=== PATIENT | male | born 1995 | race Caucasian/White ===

== ENCOUNTER 2018-11-18 16:10 | Inpatient (IN) ==
--- NOTE | 2018-11-18 16:33 | Emergency Department Note ---
Disposition Clinical Impression: Suicidal ideation Disposition: Admitted As Inpatient Condition: Good Time of Disposition: 00:02 Psych HPI - General Chief Complaint: ED Psychiatric Symptoms Stated Complaint: SI,Depression Time Seen by Provider: 11/18/18 16:19 Source: patient, family Nursing Notes Reviewed: Yes Vital Signs Reviewed: Yes - History of Present Illness HPI Narrative: 23-year-old male presents from home for violation of suicidal ideation. Patient has not seen a 7-month-old son in quite sometime. His fiancee is cheating on him. He is previously ; his spouse cheated on him at that time. He feels he is just not getting his life back together and with the news about his now fiancee, he feels his life is falling apart again. He told his parents that, "he will be around the next week." They are concerned about suicide. Patient admits to suicidal ideation. He has no specific plan. He has, on one remote occurrence, had suicidal ideation with no plan. No prior suicidal attempts. PMH: None Daily medications: None ROS: positive: Suicidal ideation with no specific plan Negative: Homicidal ideation, fever, chills, nausea, vomiting, palpitations, dyspnea, diaphoresis, abdominal pain - Related Data Previous Rx's Medication Instructions Recorded Tizanidine HCl 4 mg PO TID PRN #15 tablet 11/27/17 methylPREDNISolone [Medrol] 4 mg PO DAILY #1 pack 11/27/17 Guaifenesin/Dm/Pseudoephedrine 1 each PO Q4HR PRN #20 tablet 09/07/18 [Capmist Dm Tablet] Allergies Allergy/AdvReac Type Severity Reaction Status Date / Time No Known Allergies Allergy Verified 11/27/17 20:44 All systems ED: reviewed and negative except as stated. Review of Systems: As Per HPI Past Medical History - Past Medical History Medical history: Reports: no medical history Psychiatric history: Reports: no psych history - Social History Smoking Status: Current every day smoker Smokeless Tobacco Status: No Alcohol use: Reports: occasionally Drug use: Reports: none Physical Exam Vital Signs Reviewed General: Patient is alert, oriented, and tearful. Head: atraumatic, normocephalic Eye: normal appearance, PERRL, EOMI, no scleral icterus, no conjunctival injection ENT: mucous membranes moist, normal external ear exam Neck: normal inspection, trachea midline, full ROM Chest: normal inspection, symmetric chest rise Respiratory: Good respiratory effort. Bilateral breath sounds are clear without wheezing, crackles, or rhonchi. Cardiovascular: Regular rate and rhythm. No clicks, rubs, gallops, or murmors. Normal heart sounds. Abdomen: Bowel sounds present normoactive. Abdomen is soft, nondistended, and nontender. No guarding or rebound. No organomegaly noted. Musculoskeletal: Spontaneously moving all extremities. Skin: warm, dry, intact. Neuro: GCS 15. No focal neurologic deficits observed. Psych: Patient's affect is appropriate for situation. - General Limitations: no limitations General appearance: alert, in no apparent distress Course Course Narrative: EKG dated 11/18/18 at 17:09 interpreted as sinus rhythm with a rate of 78. NE 154, respiratory 4, QTC 420. Normal axis. Nonspecific ST-T changes. Early repolarization. No evidence of Wellens, Brugada, or Caruso Parkinson White. Compared to previous EKG dated 12/10/2017 showing no acute ischemic changes comparison. Patient is medically cleared at this time. Patient's been evaluated by mental health team. He is accepted to this facility for their continued evaluation. [place] slip has been completed. Vital Signs Temperature 98.7 F 11/18/18 16:16 Pulse Rate 90 11/18/18 16:16 Respiratory Rate 16 11/18/18 16:16 Blood Pressure 150/82 11/18/18 16:16 O2 Sat by Pulse Oximetry 96 11/18/18 16:16 Temperature 98.3 F 11/18/18 17:29 Pulse Rate 79 11/18/18 17:29 Respiratory Rate 14 11/18/18 17:29 Blood Pressure 121/68 11/18/18 17:29 O2 Sat by Pulse Oximetry 95 11/18/18 17:29 Oxygen Delivery Oxygen Delivery Room Air Psych - Lab Data Result diagrams: 11/18/18 18:11 11/18/18 18:11 Lab Results 11/18/18 11/18/18 11/18/18 Range/Units 16:30 16:30 18:11 WBC 7.0 (4.3-11.1) K/mcL RBC 4.70 (4.19-5.50) M/mcL Hgb 14.3 (12.9-16.9) g/dL Hct 42.4 (37.5-50.1) % MCV 90.2 (83.0-100.0) fL MCH 30.4 (28.0-33.3) pg MCHC 33.7 (31.6-35.5) g/dL RDW 12.4 (11.5-14.5) % Plt Count 250 (140-400) K/mcL MPV 10.3 (9.4-12.4) fL Immature Gran % 0.1 (0-4) % Seg Neutrophils % 59.5 % Lymphocytes % 24.3 % Monocytes % 10.1 % Eosinophils % 5.4 % Basophils % 0.6 % Neutrophils # 4.2 (1.6-8.9) K/mcL Lymphocytes # 1.7 (0.6-4.6) K/mcL Monocytes # 0.7 (0.0-1.3) K/mcL Eosinophils # 0.4 (0.0-0.6) K/mcL Basophils # 0.0 (0.0-0.2) K/mcL Sodium (136-145) mEq/L Potassium (3.5-5.1) mEq/L Chloride (98-107) mEq/L Carbon Dioxide (23-29) mEq/L BUN (6-20) mg/dL Creatinine (0.70-1.30) mg/dL Est GFR ( Amer) (> 60) Est GFR (Non-Af Amer) (> 60) BUN/Creatinine Ratio (6-26) Glucose (70-105) mg/dL Calculated Osmolality (280-300) Calcium (8.6-10.3) mg/dL Urine Color Dark Yellow (Yellow) Urine Clarity Clear (Clear) Urine pH 6.0 (5.0-8.0) pH Units Ur Specific [place] 1.027 H (1.010-1.025) Urine Protein Negative (Neg-Trace) mg/dL Urine Glucose (UA) Normal (Normal) mg/dL Urine Ketones 40 H (Negative) mg/dL Urine Blood Negative (Negative) Urine Nitrite Negative (Negative) Urine Bilirubin Small H (Negative) Urine Urobilinogen 2.0 H (Normal) mg/dL Ur Leukocyte Esterase Negative (Negative) Salicylates (15.0-30.0) mg/dL Urine Opiates Screen Negative (Azjstn=441) ng/mL Acetaminophen (10-20) mcg/mL Ur Barbiturates Screen Negative (Ulmahs=317) ng/mL Ur Phencyclidine Scrn Negative (Cutoff=25) ng/mL Ur Amphetamines Screen Negative (Dfszji=3909) ng/mL U Benzodiazepines Scrn Negative (Ksutkw=625) ng/mL Urine Cocaine Screen Negative (Cutoff= 300) ng/mL U Marijuana (THC) Screen Negative (Cutoff = 50) ng/mL Ur Drug Screen Interp See Below Ethyl Alcohol (Less than 10) mg/dL 11/18/18 Range/Units 18:11 WBC (4.3-11.1) K/mcL RBC (4.19-5.50) M/mcL Hgb (12.9-16.9) g/dL Hct (37.5-50.1) % MCV (83.0-100.0) fL MCH (28.0-33.3) pg MCHC (31.6-35.5) g/dL RDW (11.5-14.5) % Plt Count (140-400) K/mcL MPV (9.4-12.4) fL Immature Gran % (0-4) % Seg Neutrophils % % Lymphocytes % % Monocytes % % Eosinophils % % Basophils % % Neutrophils # (1.6-8.9) K/mcL Lymphocytes # (0.6-4.6) K/mcL Monocytes # (0.0-1.3) K/mcL Eosinophils # (0.0-0.6) K/mcL Basophils # (0.0-0.2) K/mcL Sodium 139 (136-145) mEq/L Potassium 3.6 (3.5-5.1) mEq/L Chloride 105 (98-107) mEq/L Carbon Dioxide 28 (23-29) mEq/L BUN 8 (6-20) mg/dL Creatinine 0.89 (0.70-1.30) mg/dL Est GFR ( Amer) > 60 (> 60) Est GFR (Non-Af Amer) > 60 (> 60) BUN/Creatinine Ratio 9 (6-26) Glucose 107 H (70-105) mg/dL Calculated Osmolality 287 (280-300) Calcium 9.3 (8.6-10.3) mg/dL Urine Color (Yellow) Urine Clarity (Clear) Urine pH (5.0-8.0) pH Units Ur Specific [place] (1.010-1.025) Urine Protein (Neg-Trace) mg/dL Urine Glucose (UA) (Normal) mg/dL Urine Ketones (Negative) mg/dL Urine Blood (Negative) Urine Nitrite (Negative) Urine Bilirubin (Negative) Urine Urobilinogen (Normal) mg/dL Ur Leukocyte Esterase (Negative) Salicylates < 2.5 L (15.0-30.0) mg/dL Urine Opiates Screen (Zedmvf=986) ng/mL Acetaminophen < 10 L (10-20) mcg/mL Ur Barbiturates Screen (Jujolu=669) ng/mL Ur Phencyclidine Scrn (Cutoff=25) ng/mL Ur Amphetamines Screen (Uglymr=2225) ng/mL U Benzodiazepines Scrn (Fowqhe=254) ng/mL Urine Cocaine Screen (Cutoff= 300) ng/mL U Marijuana (THC) Screen (Cutoff = 50) ng/mL Ur Drug Screen Interp Ethyl Alcohol < 10 (Less than 10) mg/dL Psychiatric Medical Clearance - Medical Clearance Checklist Medical History: No Social History Section defined Current Vitals: Last Vital Signs Temp 98.3 F 11/18/18 17:29 Pulse 79 11/18/18 17:29 Resp 14 11/18/18 17:29 BP 121/68 11/18/18 17:29 Pulse Ox 95 11/18/18 17:29 Psychiatric Lab Panel: Drug Levels and Toxicity 11/18/18 11/18/18 16:30 18:11 Urine Opiates Screen Negative Acetaminophen < 10 L Ur Barbiturates Screen Negative Ur Phencyclidine Scrn Negative Ur Amphetamines Screen Negative U Benzodiazepines Scrn Negative Urine Cocaine Screen Negative U Marijuana (THC) Screen Negative Ethyl Alcohol < 10 Abnormal Labs: Abnormal lab results Glucose 107 mg/dL (70-105) H 11/18/18 18:11 Ur Specific [place] 1.027 (1.010-1.025) H 11/18/18 16:30 40 mg/dL (Negative) H 11/18/18 16:30 Small (Negative) H 11/18/18 16:30 2.0 mg/dL (Normal) H 11/18/18 16:30 Salicylates < 2.5 mg/dL (15.0-30.0) L 11/18/18 18:11 Acetaminophen < 10 mcg/mL (10-20) L 11/18/18 18:11 Statement of Medical Clearance: I have evaluated the patient, reviewed diagnostic information, and certify that the patient's medical condition is sufficiently stable that transfer to the psychiatric unit does not pose a significant risk of deterioration. Attestation Statement - Attestation Attestation: Resident Attestation: I examined this patient and my medical decision making was reviewed with the Resident Physician. I agree with the documented findings, disposition and treatment plan as described except to the extent set forth below. We independently had [id number] contact with the patient. Patient presenting for evaluation of depression as well as suicidal ideation. Patient has significant life stressors. No active plan. Patient without fevers, chills, chest pain or other symptoms. Patient will undergo further evaluation by our mental health team. General appearance: NAD, conversant Eyes: anicteric sclerae, moist conjunctivae HENT: Atraumatic; oropharynx clear with moist mucous membranes Neck: Normal appearance; Trachea midline Chest: Symmetrical chest rise; No respiratory distress Extremities: No peripheral edema or extremity tenderness Skin: Normal temperature, turgor and texture; no rash, ulcers or subcutaneous nodules Psych: Appropriate mood and affect Neuro: Awake and alert
[2018-11-18 17:04] LABS: Bilirubin,Urine Small (Negative); Blood,Urine Negative (Negative); Clarity,Urine Clear (Clear); Color,Urine Dark Yellow (Yellow); Glucose,Urine (UA) Normal (Normal); Ketones,Urine 40 mg/dL (Negative); Leukocyte Esterase,Urine Negative (Negative); Nitrite,Urine Negative (Negative); Protein,Urine Negative (Neg-Trace); Specific Gravity,Urine 1.027 (1.010-1.025)
[2018-11-18] MEDS ORDERED: Nicotine 21 MG PATCH.TD24 TD SCH (17:15)
[2018-11-18 17:17] LABS: Amphetamine Screen,Urine Negative ng/mL (Cutoff=1000); Barbiturate Screen,Urine Negative ng/mL (Cutoff=200); Benzodiazepines Screen,Urine Negative ng/mL (Cutoff=200); Cannabinoid Screen,Urine Negative ng/mL (Cutoff = 50); Cocaine Screen,Urine Negative ng/mL (Cutoff= 300); Opiate Screen,Urine Negative ng/mL (Cutoff=300); Phencyclidine Screen,Urine Negative ng/mL (Cutoff=25)
[2018-11-18 18:23] LABS: Basophils % 0.6 %; Eosinophils # 0.4 K/mcL (0.0-0.6); Eosinophils % 5.4 %; Hematocrit 42.4 % (37.5-50.1); Hemoglobin 14.3 g/dL (12.9-16.9); Immature Granulocytes % 0.1 % (0-4); Lymphocytes # 1.7 K/mcL (0.6-4.6); Lymphocytes % 24.3 %; Mean Corpuscular HGB Conc 33.7 g/dL (31.6-35.5); Mean Corpuscular Hemoglobin 30.4 pg (28.0-33.3); Mean Corpuscular Volume 90.2 fL (83.0-100.0); Mean Platelet Volume 10.3 fL (9.4-12.4); Monocytes # 0.7 K/mcL (0.0-1.3); Monocytes % 10.1 %; Neutrophils # 4.2 K/mcL (1.6-8.9); Platelet Count 250 K/mcL (140-400); Red Cell Distribution Width 12.4 % (11.5-14.5); Segmented Neutrophils % 59.5 %
[2018-11-18 18:43] LABS: Acetaminophen < 10 mcg/mL (10-20); BUN/Creatinine Ratio 9 (6-26); Blood Urea Nitrogen 8 mg/dL (6-20); Calcium 9.3 mg/dL (8.6-10.3); Carbon Dioxide 28 mEq/L (23-29); Chloride 105 mEq/L (98-107); Ethanol < 10 mg/dL (Less than 10); Glucose 107 mg/dL (70-105); Osmolality,Calculated 287 (280-300); Potassium 3.6 mEq/L (3.5-5.1); Salicylate < 2.5 mg/dL (15.0-30.0); Sodium 139 mEq/L (136-145); eGFR For Non-African Americans > 60 (> 60)
[2018-11-19] MEDS ORDERED: *HR* LORazepam 1 MG TABLET PO PRN (00:04)
[2018-11-19] MEDS ORDERED: Mag Hydrox/Al Hydrox/Simeth 30 ML UDC PO PRN (00:04)
[2018-11-19] MEDS ORDERED: traZODone 50 MG TABLET PO PRN (00:04)
[2018-11-19] MEDS ORDERED: *HR* LORazepam 2 MG/ML VIAL IM PRN (00:04)
[2018-11-19] MEDS ORDERED: hydrOXYzine pamoate 25 MG CAPSULE PO PRN (00:04)
[2018-11-19] MEDS ORDERED: MOM Conc 10 ML UD.LIQ PO PRN (00:04)
[2018-11-19] MEDS ORDERED: Ibuprofen 400 MG TABLET PO PRN (00:04)
[2018-11-19] MEDS ORDERED: Haloperidol Lactate 5 MG/ML VIAL IM PRN (00:04)
[2018-11-19] MEDS ORDERED: Nicotine 21 MG PATCH.TD24 TD SCH (09:00)
[2018-11-19] MEDS: Nicotine 2 MG GUM BC PRN ×2 (09:44→13:54)
[2018-11-19 12:51] VITALS: BP 118/70
--- NOTE | 2018-11-19 14:08 | Discharge Summary ---
Date of Encounter: 11/19/18 Time of Encounter: 13:00 History of Present Illness Chief complaint: "I'm feeling fine. My dad just upsets me some times. He overreacts." Admitted From: Emergency Dept History of Present Illness: Mr. Gongora is a 23 year old male who was brought to the ED last evening by his father who was concerned that his son was suicidal. The father reported that the patient's friend in [place] had contacted him saying that he was coming back to visit next week, and the son said he might not be there. According to the father, the man coming for the visit asked the patient where he would be, and the patient replied, 'probably in hell.' Patient denies being suicidal. He is going through a stressful period currently as he found out his fiancee was having an affair and she left him and took their 10 month old son. He reports felling anxious about this and worrying as she is not letting him see his son and he has little to no communication with her. He is depressed and anxious, but not hopeless and helpless. He has lost weight in past month or two, but he states that was because he was over weight and people were telling him he was getting fat. He states what his father did not report, was that after he said 'probably in hell', that he followed it up with "That's what I'm living in now with everything that is going on right now" regarding his now ex-fiancee and his son. He does admit to isolating recently and working on his trucks and other projects to keep his mind active and not to perseverate on the break up of the relationship. He does acknowledge that he got depressed before when his marriage fell apart, over a similar incident. And with his father's insistence, saw his family doc to get placed on medication for depression and anxiety. He took it for about 2 weeks. He did not like the side effects and stopped taking it. I"I didn't need it. I was fine." He never went back for counseling, never tried to harm himself or anyone else. With time, things improved and life got back to normal. He tells me that he gets frustrated with his dad because his "dad puts his own spin on things and does not understand or know" what the patient is going through and what he is doing to cope. "I would never hurt myself. I have two sons to raise and they need me. I need to get home today because today is my oldest son's 5th birthday and I need to be a part of that." He also states that he was thinking about going to [place] for a long weekend at the time that his snow was coming home from [place]. That was also why he said that he may not be there. "Not cause I am going to kill myself." He tells me that his father has depression and thinks he can help or understands. He appreciates that, but feels he overreacts. He denies being tearful or not having life goals for the future. He is not hopeless nor helpless. He does think about things and worry and has been keeping to himself a bit. He does this a lot at night and it does impact his sleep. He slept fine on the unit last night, 6 hours of sleep. His appetite is fine. He is still participating in actives he likes to do. "I spent last weekend away riding razors to get out and do things I like. I want to go home and work on my truck and fix it up. I'm still doin' a lot of things." He has never self harmed in the past. He thinks someone in that was related to him, a distant cousin, committed suicide, but no one else. He lives next door to his mother and has interaction with his family every day. He finds them supportive, and knows his father means well. He denies elevated mood or going days without sleep. He does not, nor never has ever felt on top of the world and invincible. No impulsive buying or spending. No A/V hallucinations, mind-reading or paranoia. Past Med Surg Social Fam HX - Past Medical History Medical history: no medical history - Past Psychiatric History Psychiatric history: Reports: anxiety, depression (related to a relationship break up) Family psychiatric history: Yes (Father and maternal grandmother) Family History of Suicide: Completed (a second cousin on his mom's side of the family) - Social History Smoking Status: Current every day smoker Smokeless Tobacco Status: No Alcohol use: occasionally Drug use: none Occupational status: employed Current living situation: Home - Independent, With Family Activity Level: Independent ambulation Recent Out of Country Travel Within the Last 8 Weeks: No Exposure or Possible Exposure to Illness During Travel: No Additional social history: He has two young sons and lives next door to his mother and his uncle lives across the [facility]. 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 Medications - Discharge Medications Prescriptions: hydrOXYzine pamoate [HydrOXYzine Pamoate] 25 mg PO TID PRN 20 Days #30 capsule PRN Reason: Anxiety hydrOXYzine pamoate [HydrOXYzine Pamoate] 25 mg PO TID PRN 20 Days #30 capsule 11/19/18 [Rx] Allergy/AdvReac Type Severity Reaction Status Date / Time No Known Allergies Allergy Verified 11/19/18 13:04 Review of Systems Psychiatric: Reports: anxiety Exam - HEENT Head exam IM: Present: atraumatic Eye exam IM: Present: EOMI - Neurological Neurological exam: Present: CN II-XII intact, alert - Constitutional Vitals: Temp Pulse Resp BP Pulse Ox 98.3 F 63 16 118/70 96 11/19/18 09:00 11/19/18 09:00 11/19/18 09:00 11/19/18 09:00 11/19/18 09:00 General appearance: age & developmentally appropriate, well-nourished - Musculoskeletal Gait: normal Station: slouched Strength & Tone: normal for patient - Psychiatric Patient Orientation: Yes Person, Yes Time, Yes Place, Yes Circumstance Level of alertness: Alert, Follows commands Behavior: calm, cooperative Psychomotor activity: Normal Eye Contact: Maintains Eye Contact Mood Description: Anxious (mildly) Patient description of mood: I'm upset because my ex had an affair and she is keeping my son away from me. Affect description: congruent with mood Speech Volume: Normal Speech pattern: normal rate, normal rhythm, normal tone, fluent Language & Vocabulary: consistent with education Thought Process: Intact, Logical, Linear, Goal Oriented Thought Content: Yes Intact Attention Span Ability: Capable of Focused Attention, Capable of Sustained Attention Memory Description: Grossly Intact Patient Reliability: Reliable Historian Fund of knowledge: Yes abstraction ability Intelligence Estimate: Average Judgment: Good Insight: Partial Results - Drug Levels and Toxicology Drug Levels and Toxicology: Drug Levels and Toxicity 11/18/18 11/18/18 16:30 18:11 Urine Opiates Screen Negative Acetaminophen < 10 L Ur Barbiturates Screen Negative Ur Phencyclidine Scrn Negative Ur Amphetamines Screen Negative U Benzodiazepines Scrn Negative Urine Cocaine Screen Negative U Marijuana (THC) Screen Negative Ethyl Alcohol < 10 - Labs Labs: Laboratory Last Values WBC 7.0 K/mcL (4.3-11.1) 11/18/18 18:11 RBC 4.70 M/mcL (4.19-5.50) 11/18/18 18:11 Hgb 14.3 g/dL (12.9-16.9) 11/18/18 18:11 Hct 42.4 % (37.5-50.1) 11/18/18 18:11 MCV 90.2 fL (83.0-100.0) 11/18/18 18:11 MCH 30.4 pg (28.0-33.3) 11/18/18 18:11 MCHC 33.7 g/dL (31.6-35.5) 11/18/18 18:11 RDW 12.4 % (11.5-14.5) 11/18/18 18:11 Plt Count 250 K/mcL (140-400) 11/18/18 18:11 MPV 10.3 fL (9.4-12.4) 11/18/18 18:11 Immature Gran % 0.1 % (0-4) 11/18/18 18:11 Seg Neutrophils % 59.5 % 11/18/18 18:11 24.3 % 11/18/18 18:11 10.1 % 11/18/18 18:11 5.4 % 11/18/18 18:11 0.6 % 11/18/18 18:11 4.2 K/mcL (1.6-8.9) 11/18/18 18:11 1.7 K/mcL (0.6-4.6) 11/18/18 18:11 0.7 K/mcL (0.0-1.3) 11/18/18 18:11 0.4 K/mcL (0.0-0.6) 11/18/18 18:11 0.0 K/mcL (0.0-0.2) 11/18/18 18:11 Sodium 139 mEq/L (136-145) 11/18/18 18:11 Potassium 3.6 mEq/L (3.5-5.1) 11/18/18 18:11 Chloride 105 mEq/L (98-107) 11/18/18 18:11 Carbon Dioxide 28 mEq/L (23-29) 11/18/18 18:11 BUN 8 mg/dL (6-20) 11/18/18 18:11 0.89 mg/dL (0.70-1.30) 11/18/18 18:11 Est GFR ( Amer) > 60 (> 60) 11/18/18 18:11 Est GFR (Non-Af Amer) > 60 (> 60) 11/18/18 18:11 9 (6-26) 11/18/18 18:11 Glucose 107 mg/dL (70-105) H 11/18/18 18:11 287 (280-300) 11/18/18 18:11 Calcium 9.3 mg/dL (8.6-10.3) 11/18/18 18:11 Dark Yellow (Yellow) 11/18/18 16:30 Clear (Clear) 11/18/18 16:30 6.0 pH Units (5.0-8.0) 11/18/18 16:30 Ur Specific [place] 1.027 (1.010-1.025) H 11/18/18 16:30 Negative mg/dL (Neg-Trace) 11/18/18 16:30 Normal mg/dL (Normal) 11/18/18 16:30 40 mg/dL (Negative) H 11/18/18 16:30 Negative (Negative) 11/18/18 16:30 Negative (Negative) 11/18/18 16:30 Small (Negative) H 11/18/18 16:30 2.0 mg/dL (Normal) H 11/18/18 16:30 Ur Leukocyte Esterase Negative (Negative) 11/18/18 16:30 Salicylates < 2.5 mg/dL (15.0-30.0) L 11/18/18 18:11 Negative ng/mL (Nwmrfj=387) 11/18/18 16:30 Acetaminophen < 10 mcg/mL (10-20) L 11/18/18 18:11 Ur Barbiturates Screen Negative ng/mL (Xetrcu=547) 11/18/18 16:30 Ur Phencyclidine Scrn Negative ng/mL (Cutoff=25) 11/18/18 16:30 Ur Amphetamines Screen Negative ng/mL (Wkutzv=9280) 11/18/18 16:30 U Benzodiazepines Scrn Negative ng/mL (Nkrrsw=924) 11/18/18 16:30 Negative ng/mL (Cutoff= 300) 11/18/18 16:30 U Marijuana (THC) Screen Negative ng/mL (Cutoff = 50) 11/18/18 16:30 Ur Drug Screen Interp See Below 11/18/18 16:30 Ethyl Alcohol < 10 mg/dL (Less than 10) 11/18/18 18:11 Diagnosis - Discharge Diagnosis (1) Adjustment reaction of adult life Status: Acute (2) Anxiety as acute reaction to exceptional stress Status: Acute Assessment and Plan - Patient/Caregiver Discharge Instructions Activity: resume usual activities as tolerated Diet: regular diet Additional Instructions: Patient has contracted with his father that he will stay with family at night for the next few evenings so he is not home alone to ease his father's mind. Patient lives next door to his mother, an uncle and less than 10 min away from his father. 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 - Follow up Plan Follow up with: [facility] [Other] (You have informed us that you do not have a Primary Care Physician (PCP) at this time. It is highly recommended that you get a PCP for better health outcomes. Please do not hesitate to call the [place]erral line at [phone] or visit [email or web address] if you have any questions or wish to schedule an appointment with a Primary Care Physician.) [facility] [Outside] - 11/30/18 1:30 pm (You have an appointment scheduled for Friday, November 30, 2018 at 1:30 PM with Sue Thomas for an initial intake assessment. This appointment typically takes 1 1 hours and will cover your current symptoms and goals for treatment. Please complete the New Patient Intake Packet provided to you by staff and bring this with you to this appointment. Please also bring your insurance card, identification, proof of residence (utility bill or similar piece of mail), and proof of income (if applicable). If you are unable to keep this appointment, please call the office at the number above as soon as possible. ) Functional capacity at discharge: independent ambulation Overall status at discharge: Stable Disposition: Home, Self-Care Provider Date of admission: 11/18/18 23:53 Primary care physician: PCP NONE Hospital Course Hospital course: Patient reviewed his current situation and issues. He does appear to have some situational anxiety and depressive issues. We discussed Vistaril, reviewed R/B/SE, as a possible medication that he could take to help with his anxiety and potentially help with his sleep if his mind got focused and had continued worrisome thoughts regarding his son and situation. He was agreeable to taking it as a prn. He did not want to be started on any antidepressants or other antianxiety medications. He signed a consent form for the medication and also signed a consent form to talk to his father. In speaking with his father and reviewing the situation and what occurred, his father talked about his concern for his son. He talked about his own depression and how he felt better after getting on medications, Viibrid, and getting counseling. There is no known immediate family members who attempted suicide. When asked about the distant cousin who committed suicide, he told me that it was the patient's mother's nephew that killed himself. This contributes to his worry over his son and being overly concerned and protecting his son, secondary to not wanting that result of the distant cousin. The patient verbalized understanding that and where his father was coming from. We talked about the son not wanting to take medications, but he was was willing to take a prn for the anxiety and get set up with community counseling to deal with the stress and help with coping in order to have someone to talk to other than family. "He needs someone he can open up with and talk about personal stuff that he wouldn't tell me or his mom. I think that would be good." He found that helpful and felt better now. He talked to his son about coming home and staying connected to someone in the family and reporting in and potentially spending the night at this mother, uncle or father's house to make sure he was okay. "Just for a few days to know you are fine and not alone with all of this." The patient agreed to this saying he would do that too make them feel better. They all live on the same area with his mother in a house next door to his as well as an uncle he is close to and hangs out with. The patient was agreeable to get outpatient counseling. He denied any side effects of taking the Vistaril except that it made him a little tired. His father will come pick him up and he will follow through with what was discussed and outpatient appointments after discharge. Time spent discussing smoking cessation with patient: 3 to 10 minutes Does patient wish to continue nicotine replacement upon disc: No - Time Spent with Patient Total time spent providing and/or coordinating discharge services: 45 min Greater than 30 minutes (Discharging to home and his father's care. F/U outpatient mental Health counseling scheduled) Procedures - Procedures Procedures: Medication Management, Supportive Therapy, Psychoeducational Therapy Quality - Multiple Antipsychotics Patient discharged on 2 or more antipsychotic medications: No
--- NOTE | 2018-11-19 21:07 | Electrocardiograph Report ---
[place] [id number] Test Date: 2018-11-18 Pat Name: Erik Gongora Department: EXAM20 Room: 1A23 Gender: M [employer]: : 1995 Requested By: Cory Justice Order Number: [id number] Reading MD: Josias Jones Measurements Intervals [place] Rate: 78 P: 57 RI: 154 QRS: 86 QRSD: 104 T: 54 QT: 368 QTc: 420 Interpretive Statements Sinus rhythm ST elev, probable normal early repol pattern Electronically Signed On 11-19-2018 21:05:08 EDT by Josias Jones
== END 2018-11-19 18:05 | disposition home or self-care (01) | DRG 882 ==
LOC: EMEROOARM 16:10 → 1ANU 23:00
PROVIDERS: ADMIT Psychiatry & Neurology Psychiatry; ATTEND Psychiatry & Neurology Psychiatry

== ENCOUNTER 2020-09-22 16:16 | Observation (INO) ==
[2020-09-22] MEDS ORDERED: Ibuprofen 800 MG TABLET PO ONE (16:26)
[2020-09-22 17:13] LABS: Basophils # 0.1 K/mcL (0.0-0.2); Basophils % 0.5 %; Eosinophils # 0.1 K/mcL (0.0-0.6); Eosinophils % 0.8 %; Hematocrit 47.6 % (37.5-50.1); Hemoglobin 15.3 g/dL (12.9-16.9); Immature Granulocytes % 0.4 % (0-4); Lymphocytes # 1.4 K/mcL (0.6-4.6); Mean Corpuscular HGB Conc 32.1 g/dL (31.6-35.5); Mean Corpuscular Hemoglobin 29.8 pg (28.0-33.3); Mean Corpuscular Volume 92.6 fL (83.0-100.0); Mean Platelet Volume 10.2 fL (9.4-12.4); Monocytes % 9.1 %; Neutrophils # 8.4 K/mcL (1.6-8.9); Platelet Count 270 K/mcL (140-400); Red Blood Count 5.14 M/mcL (4.19-5.50); Red Cell Distribution Width 12.7 % (11.5-14.5); Segmented Neutrophils % 76.2 %
[2020-09-22 17:14] LABS: Estimated Average Glucose 108 mg/dl; Hemoglobin A1C 5.4 %
[2020-09-22 17:34] LABS: Acetaminophen < 10 mcg/mL (10-20); Alanine Aminotransferase 11 Units/L (7-52); Albumin 4.9 g/dL (3.5-5.7); Albumin/Globulin Ratio 1.8 (1.1-2.2); Alkaline Phosphatase 72 Units/L (34-104); Aspartate Amino Transferase 20 Units/L (13-39); BUN/Creatinine Ratio 7 (6-26); Bilirubin,Direct 0.1 mg/dL (0.0-0.2); Bilirubin,Indirect 0.6 mg/dL (0.0-1.0); Bilirubin,Total 0.7 mg/dL (0.3-1.0); Blood Urea Nitrogen 6 mg/dL (6-20); Calcium 9.7 mg/dL (8.6-10.3); Carbon Dioxide 23 mEq/L (23-29); Chloride 106 mEq/L (98-107); Chol/HDL Ratio 3.1 (0-4.9); Cholesterol 136 mg/dL (< 200); Ethanol < 10 mg/dL (Less than 10); Globulin 2.8 g/dL (2.4-3.5); Glucose 93 mg/dL (70-105); HDL Cholesterol 44 mg/dL (40-59); LDL Cholesterol,Calculated 81 mg/dL (< 100); Osmolality,Calculated 285 (280-300); Potassium 4.1 mEq/L (3.5-5.1); Salicylate < 2.5 mg/dL (15.0-30.0); Sodium 139 mEq/L (136-145); Total Protein 7.7 g/dL (6.4-8.9); Triglycerides 57 mg/dL (< 150); eGFR For African Americans > 60 (> 60); eGFR For Non-African Americans > 60 (> 60)
[2020-09-22] MEDS ORDERED: Aspirin 325 MG TABLET PO ONE (17:38)
[2020-09-22 17:46] LABS: Thyroid Stimulating Hormone 0.463 mcIU/mL (0.340-5.600)
[2020-09-22] MEDS ORDERED: Ondansetron 4 MG/2 ML VIAL IVP PRN (18:19)
[2020-09-22] MEDS ORDERED: Naloxone 0.4 MG/ML INJ IVP PRN (18:19)
[2020-09-22 20:48] LABS: Bacteria,Urine Few per hpf (None-Few); Bilirubin,Urine Negative (Negative); Blood,Urine Trace (Negative); Clarity,Urine Clear (Clear); Color,Urine Light-Yellow (Yellow); Glucose,Urine (UA) Normal (Normal); Ketones,Urine 40 mg/dL (Negative); Leukocyte Esterase,Urine Negative (Negative); Mucus,Urine Many per lpf (None-Few); Nitrite,Urine Negative (Negative); PH,Urine 6.5 pH Units (5.0-8.0); Protein,Urine Trace mg/dL (Neg-Trace); RBC,Urine 0-3 per hpf (0-3); Specific Gravity,Urine 1.021 (1.010-1.025); Urobilinogen,Urine Normal (Normal); WBC,Urine 0-3 per hpf (0-3)
[2020-09-22 20:53] LABS: Amphetamine Screen,Urine Negative ng/mL (Cutoff=1000); Barbiturate Screen,Urine Negative ng/mL (Cutoff=200); Benzodiazepines Screen,Urine Negative ng/mL (Cutoff=200); Cannabinoid Screen,Urine Negative ng/mL (Cutoff = 50); Cocaine Screen,Urine Negative ng/mL (Cutoff= 300); Opiate Screen,Urine Negative ng/mL (Cutoff=300); Phencyclidine Screen,Urine Negative ng/mL (Cutoff=25)
[2020-09-22] MEDS ORDERED: Perflutren Lipid Microsphere 1.3 ML in 0.9 % Sodium Chloride 8.7 ML IVP PRN (22:04)
[2020-09-22] MEDS: Nicotine 21 MG PATCH.TD24 TD SCH (22:12)
[2020-09-22] MEDS: QUEtiapine Fumarate 25 MG TABLET PO SCH (22:50)
[2020-09-23] MEDS: *HR* Enoxaparin 40 MG/0.4 ML SYRINGE SQ SCH (05:24)
[2020-09-23] MEDS: Nicotine 21 MG PATCH.TD24 TD SCH (09:08)
[2020-09-23] MEDS: Nicotine 2 MG GUM BC PRN (15:40)
[2020-09-23] MEDS: QUEtiapine Fumarate 25 MG TABLET PO SCH (19:58)
[2020-09-24] MEDS: *HR* Enoxaparin 40 MG/0.4 ML SYRINGE SQ SCH (05:04)
[2020-09-24 07:11] VITALS: BP 112/72
[2020-09-24] MEDS ORDERED: Acetaminophen 325 MG TABLET PO PRN (08:12)
[2020-09-24] MEDS: Nicotine 21 MG PATCH.TD24 TD SCH (08:35)
[2020-09-24] MEDS: Nicotine 2 MG GUM BC PRN (10:31)
== END 2020-09-24 12:40 | disposition home or self-care (01) ==
LOC: EMEROOARM 16:16 → 3BNU 16:16 → SUATTDRO 18:31 → 3BNU 19:51
PROVIDERS: ADMIT Internal Medicine; ATTEND Internal Medicine